=== PATIENT | female | born 1955 ===

== ENCOUNTER 2019-03-25 10:01 | Emergency (ER) | payer MEDICARE, OTHER ==
[~2019-03-25] VITALS: Ht 175.3 cm; Wt 96.6 kg
[2019-03-25] MEDS ORDERED: TRAZ50 PO (10:20)
[2019-03-25] MEDS ORDERED: PANT40 PO (10:20)
[2019-03-25] MEDS ORDERED: CYCL10 PO (10:20)
[2019-03-25] MEDS ORDERED: NORT25 PO (10:20)
[2019-03-25] MEDS ORDERED: METPRE4DP PO (11:33)
== END 2019-03-25 12:14 | disposition home or self-care (01) ==
LOC: ER 10:01
DX: G89.29 Other chronic pain (principal); M54.5 Low back pain; K21.9 Gastro-esophageal reflux disease without esophagitis; Z87.891 Personal history of nicotine dependence; Z88.5 Allergy status to narcotic agent; Z91.040 Latex allergy status; Z79.899 Other long term (current) drug therapy
CPT/HCPCS: 96372; 99283-25; J1100; J1885

== ENCOUNTER 2020-12-07 12:42 | Emergency (ER) | payer OTHER ==
[~2020-12-07] VITALS: Ht 172.7 cm; Wt 98.4 kg
[~2020-12-07 12:42] MED LIST: CYCL10 PO; METPRE4DP PO; NORT25 PO; PANT40 PO; TRAZ50 PO
[2020-12-07] MEDS ORDERED: BP MEDICATION (13:07)
[2020-12-07] MEDS ORDERED: ALBU3IS INH (13:08)
== END 2020-12-07 15:44 | disposition home or self-care (01) ==
LOC: ER 12:42
DX: S63.501A Unspecified sprain of right wrist, initial encounter (principal); S63.502A Unspecified sprain of left wrist, initial encounter; S60.512A Abrasion of left hand, initial encounter; S60.511A Abrasion of right hand, initial encounter; Z91.040 Latex allergy status; Z88.5 Allergy status to narcotic agent; Z87.891 Personal history of nicotine dependence; W18.30XA Fall on same level, unspecified, initial encounter
CPT/HCPCS: 64450; 73090; 73100; 73120; 96372-59; 99283-25; J1885

== ENCOUNTER 2021-08-08 16:13 | Emergency (ER) | payer MEDICARE ==
[~2021-08-08] VITALS: Ht 175.3 cm; Wt 98.9 kg
[~2021-08-08 16:13] MED LIST changes: +ALBU3IS INH; +BP MEDICATION
[2021-08-08 17:17] LABS: BASOPHILS ABSOLUTE AUTO 0.07 K/mm3 (0.00-0.23); BASOPHILS PERCENT AUTO 1 % (0-2); EOSINOPHILS ABSOLUTE AUTO 0.26 K/mm3 (0.00-0.68); EOSINOPHILS PERCENT AUTO 3 % (0-6); Hemoglobin 15.3 g/dL (11.5-16.0); IMMATURE GRAN ABSOLUTE AUTO 0.03 K/mm3 (0.00-0.10); IMMATURE GRAN PERCENT AUTO 0 % (0-1); LYMPHOCYTES ABSOLUTE AUTO 3.69 K/mm3 (0.84-5.20); LYMPHOCYTES PERCENT AUTO 37 % (21-46); MONOCYTES ABSOLUTE AUTO 0.57 K/mm3 (0.16-1.47); MONOCYTES PERCENT AUTO 6 % (4-13); Mean Corpuscular Volume 85 fL (80-100); Mean Platelet Volume 10.5 fL (9.1-12.4); NEUTROPHILS ABSOLUTE AUTO 5.49 K/mm3 (1.96-9.15); NEUTROPHILS PERCENT AUTO 54 % (41-73); Platelet Count 300 K/mm3 (150-400); RDW Coefficient Variation 12.7 % (11.7-14.2); RDW Standard Deviation 39.5 fL (35.1-46.3); Red Blood Cell Count 5.28 M/mm3 (3.80-5.20); White Blood Cell Count 10.11 K/mm3 (4.00-11.30)
[2021-08-08 17:27] LABS: Magnesium, Blood 1.8 mg/dL (1.6-2.4); Troponin I <0.015 ng/mL (0.000-0.040)
[2021-08-08 18:32] LABS: Alanine Aminotransfer (ALT/SGP 43 U/L (12-78); Albumin, Blood 4.2 g/dL (3.4-5.0); Albumin/Globulin Ratio 1.1 (0.8-1.8); Alk Phos 82 U/L (50-136); Anion Gap 12 mmol/L (6-16); Aspartate Aminotrans (AST/SGOT 32 U/L (12-37); Bilirubin, Total 0.7 mg/dL (0.1-1.0); Blood Urea Nitrogen 23 mg/dL (8-24); Bun/Creatinine Ratio 17.3 (12.0-20.0); CO2, Blood 21 mmol/L (21-32); Calcium, Blood 9.7 mg/dL (8.5-10.1); Chloride, Blood 108 mmol/L (98-108); Creatinine, Blood 1.33 mg/dL (0.40-1.00); Globulin, Blood 3.9 g/dL (2.2-4.0); Glomerular Filtration Rate 40 (60-); Glucose, Blood 140 mg/dL (70-99); Potassium, Blood 3.6 mmol/L (3.5-5.5); Sodium, Blood 141 mmol/L (136-145); Total Protein, Blood 8.1 g/dL (6.4-8.2)
== END 2021-08-08 22:18 | disposition home or self-care (01) ==
LOC: ER 16:13
PROVIDERS: Emergency Medicine Emergency Medical Services
DX: R07.89 Other chest pain (principal); R00.2 Palpitations; I10 Essential (primary) hypertension; Z91.040 Latex allergy status; Z88.5 Allergy status to narcotic agent; Z79.899 Other long term (current) drug therapy
CPT/HCPCS: 36415; 70450; 71045; 80053; 83735; 83880; 84484; 85025; 93005; 93010; 96374; 96375; 99285-25; J2060; J2550

== ENCOUNTER → 2021-10-04 | Outpatient (CLI) | payer MEDICARE ==
[2021-10-05 10:42] LABS: Candida species (DNA Probe) Negative (NEGATIVE); G. vaginalis (DNA Probe) Positive (NEGATIVE); T. vaginalis (DNA Probe) Negative (NEGATIVE)
[2021-10-07 02:10] LABS: CHLAMYDIA TRACHOMATIS, NAA Negative (Negative)
== END | disposition home or self-care (01) ==
LOC: LAB 16:15 → LAB SHORT 16:15
PROVIDERS: Family Medicine
DX: N95.0 Postmenopausal bleeding (principal)
CPT/HCPCS: 87480; 87491; 87510; 87591; 87660

== ENCOUNTER → 2023-09-12 | Outpatient (CLI) | payer OTHER ==
[~2023-09-12] MED LIST changes: +Acetaminophen650 M1 PO; +LOSA50 PO; +ONDA4ODT MM; +OXYC5 PO
== END ==
LOC: LAB SHORT 18:54 → LAB 18:54
DX: K21.9 Gastro-esophageal reflux disease without esophagitis (principal)
CPT/HCPCS: 87338

== ENCOUNTER 2024-12-02 05:17 | Inpatient (IN) | payer OTHER ==
[~2024-12-02] VITALS: Ht 175.3 cm; Wt 101.6 kg
[2024-12-02] MEDS ORDERED: Promethazine HCl 25 MG Tab PO ONE (06:10)
[2024-12-02] MEDS ORDERED: Gabapentin 300 MG Cap PO ONE (08:00)
[2024-12-02] MEDS ORDERED: Acetaminophen 500 MG Tab PO ONE (08:00)
[2024-12-02] MEDS ORDERED: Dexamethasone Sod Phos 10 MG/ML 1ML VIAL IV ONE (08:00)
[2024-12-02] MEDS ORDERED: Ketorolac Tromethamine 15mg Vial IV ONE (08:00)
[2024-12-02 13:44] LABS: Body Fluid Crystals NEG (NEGATIVE)
[2024-12-02 14:13] LABS: BODY FLUID RBC 0.002 M/mm3 (0-0)
[2024-12-02 14:23] LABS: RBC Count, Synovial Fluid 2000 /mm3 (0-0); WBC Count, Synovial Fluid 60870 /mm3 (0-180)
[2024-12-02 15:04] LABS: Lymphs, Synovial Fluid 6 % (0-15); Monocytes/Macrophages, Synovia 10 % (0-65); Neutrophils, Synovial Fluid 84 % (0-24)
[2024-12-02 15:05] LABS: Appearance, Synovial Fluid Cloudy (Clear); Color, Synovial Fluid Yellow (None-P Yel)
[2024-12-02] MEDS ORDERED: CefTRIAXone Sodium 2,000 MG in NS 100 ML IV ONE (15:50)
[2024-12-02] MEDS ORDERED: Vancomycin HCL 2,000 MG in NS 500 ML IV ONE (16:00)
[2024-12-02] MEDS ORDERED: FLU VACC TS2024-25(6MOS UP)/PF 45 MCG/0.5 ML SYRINGE IM SCH (16:10)
[2024-12-02 17:19] LABS: BASOPHILS ABSOLUTE AUTO 0.02 K/mm3 (0.00-0.23); BASOPHILS PERCENT AUTO 0 % (0-2); EOSINOPHILS PERCENT AUTO 0 % (0-6); Hematocrit 44.9 % (33.0-51.0); Hemoglobin 14.4 g/dL (11.5-16.0); IMMATURE GRAN ABSOLUTE AUTO 0.07 K/mm3 (0.00-0.10); IMMATURE GRAN PERCENT AUTO 1 % (0-1); LYMPHOCYTES ABSOLUTE AUTO 1.17 K/mm3 (0.84-5.20); LYMPHOCYTES PERCENT AUTO 11 % (21-46); MONOCYTES ABSOLUTE AUTO 0.25 K/mm3 (0.16-1.47); MONOCYTES PERCENT AUTO 2 % (4-13); Mean Corpuscular HGB 28.5 pg (26.0-34.0); Mean Corpuscular HGB Conc 32.1 g/dL (31.5-36.5); Mean Corpuscular Volume 89 fL (80-100); Mean Platelet Volume 9.6 fL (9.1-12.4); NEUTROPHILS ABSOLUTE AUTO 8.86 K/mm3 (1.96-9.15); NEUTROPHILS PERCENT AUTO 85 % (41-73); Platelet Count 259 K/mm3 (150-400); RDW Coefficient Variation 13.6 % (11.7-14.2); RDW Standard Deviation 44.4 fL (35.1-46.3); Red Blood Cell Count 5.06 M/mm3 (3.80-5.20); White Blood Cell Count 10.37 K/mm3 (4.00-11.30)
[2024-12-02] MEDS ORDERED: ATOR40TA PO (17:27)
[2024-12-02 17:45] LABS: C-REACTIVE PROTEIN, EXT RANGE 5.01 mg/dL (0.000-0.300)
[2024-12-02 17:48] LABS: Albumin, Blood 3.2 g/dL (3.4-5.0); Albumin/Globulin Ratio 0.9 (0.8-1.8); Bilirubin, Total 0.6 mg/dL (0.1-1.0); Creatinine, Blood 0.9 mg/dL (0.40-1.00); Globulin, Blood 3.6 g/dL (2.2-4.0); Potassium, Blood 4.2 mmol/L (3.5-5.5); Total Protein, Blood 6.8 g/dL (6.4-8.2)
[2024-12-02] MEDS ORDERED: Ketorolac Tromethamine 15mg Vial IV PRN (18:00)
[2024-12-02] MEDS ORDERED: Promethazine HCl 25 MG Tab PO PRN (18:00)
--- NOTE | 2024-12-02 18:17 | NUR ---
PT ADMITTED THIS EVENING FROM ED FOR INFECTED ARTHRITIS OF RT KNEE, I&D PLANNED FOR TOMORROW, PT TO BE NPO AT MIDNIGHT. PT REPORTS PAIN IN RT KNEE FOR THE LAST MONTH, UNABLE TO BEAR WT D/T PAIN. PT ALERT AND ORIENTED X4, VSS, RA, SKIN IN TACT OTHER THAN SMALL PUNCTURE SITE IN RT KNEE R/T ARTHROCENTESIS DONE IN THE ED. PT STATES NORMALLY CONT OF BOWEL AND BLADDER, BUT TODAY HAS URGENCY INCONTINENCE, PUREWIK IN PLACE. PT ORIENTED TO ROOM AND CALL LIGHT, BED IN LOWEST POSITION AND CALL LIGHT IN REACH.
[2024-12-02 19:23] VITALS: BP 169/73
[2024-12-02] MEDS ORDERED: Acetaminophen 325 MG TABLET PO PRN (19:55)
[2024-12-02] MEDS ORDERED: Albuterol 2.5 MG/3 ML VIAL INH SCH (20:00)
[2024-12-02 20:02] VITALS: BP 157/65
[2024-12-02] MEDS ORDERED: Atorvastatin 40 MG Tab PO SCH (21:00)
[2024-12-02] MEDS ORDERED: Losartan Potassium 50 MG Tab PO SCH (21:25)
[2024-12-03] VITALS (18 sets, daily range): BP systolic 120–162; BP diastolic 56–76
[2024-12-03] MEDS ORDERED: OMEP20ER PO (03:25)
[2024-12-03 04:59] LABS: BASOPHILS ABSOLUTE AUTO 0.01 K/mm3 (0.00-0.23); BASOPHILS PERCENT AUTO 0 % (0-2); EOSINOPHILS ABSOLUTE AUTO 0.01 K/mm3 (0.00-0.68); EOSINOPHILS PERCENT AUTO 0 % (0-6); Hematocrit 40.3 % (33.0-51.0); Hemoglobin 13.2 g/dL (11.5-16.0); IMMATURE GRAN ABSOLUTE AUTO 0.11 K/mm3 (0.00-0.10); IMMATURE GRAN PERCENT AUTO 1 % (0-1); LYMPHOCYTES ABSOLUTE AUTO 2.67 K/mm3 (0.84-5.20); LYMPHOCYTES PERCENT AUTO 18 % (21-46); MONOCYTES ABSOLUTE AUTO 1.11 K/mm3 (0.16-1.47); MONOCYTES PERCENT AUTO 7 % (4-13); Mean Corpuscular HGB 28.5 pg (26.0-34.0); Mean Corpuscular HGB Conc 32.8 g/dL (31.5-36.5); Mean Corpuscular Volume 87 fL (80-100); Mean Platelet Volume 9.6 fL (9.1-12.4); NEUTROPHILS PERCENT AUTO 74 % (41-73); Platelet Count 245 K/mm3 (150-400); RDW Coefficient Variation 13.6 % (11.7-14.2); RDW Standard Deviation 43.1 fL (35.1-46.3); Red Blood Cell Count 4.63 M/mm3 (3.80-5.20); White Blood Cell Count 15.11 K/mm3 (4.00-11.30)
[2024-12-03 05:28] LABS: Albumin, Blood 2.8 g/dL (3.4-5.0); Albumin/Globulin Ratio 0.8 (0.8-1.8); Bilirubin, Total 0.4 mg/dL (0.1-1.0); Bun/Creatinine Ratio 29.3 (12.0-20.0); Calcium, Blood 8.9 mg/dL (8.5-10.1); Creatinine, Blood 0.92 mg/dL (0.40-1.00); Globulin, Blood 3.4 g/dL (2.2-4.0); Magnesium, Blood 2.4 mg/dL (1.6-2.4); Potassium, Blood 4.5 mmol/L (3.5-5.5); Total Protein, Blood 6.2 g/dL (6.4-8.2)
[2024-12-03] MEDS ORDERED: Albuterol 2.5 MG/3 ML VIAL INH PRN (07:55)
--- NOTE | 2024-12-03 08:11 | NUR ---
SHIFT SUMMARY NOC. PT A/O X4, PT PLAN TO HAVE I&D TODAY FOR SEPTIC ARTHRITIS OF R KNEE. PT NPO SINCE 0000 ASIDE FROM SIP OF WATER FOR NAUSEA AND PAIN MEDS. PT VOIDING URINE AND REPORTS INTERMITTENT NAUSEA, NO VOMIT EPISODES. PT MEDICATED FOR PAIN WITH ORAL TYLENOL AND TORADOL. PT REPORTED SOME RELIEF. MAKES NEEDS KNOWN, CALL LIGHT IN REACH.
[2024-12-03] MEDS ORDERED: Enoxaparin 40 MG/0.4 ML SYR SC SCH (09:00)
[2024-12-03] MEDS ORDERED: Losartan Potassium 50 MG Tab PO SCH (09:00)
[2024-12-03] MEDS ORDERED: propofoL 20 ML IV ONE (09:32)
[2024-12-03] MEDS ORDERED: Ondansetron HCl 2 MG / ML 2ML Vial ONE (09:32)
[2024-12-03] MEDS ORDERED: FentaNYL Citrate 50 MCG/ML 2 ML Injection ONE ×2 (09:32→13:42)
[2024-12-03] MEDS ORDERED: Ketorolac Tromethamine 30mg Vial ONE (09:32)
[2024-12-03] MEDS ORDERED: Dexamethasone Sod Phos 10 MG/ML 1ML VIAL ONE (09:32)
--- NOTE | 2024-12-03 11:33 | NUR ---
PT TO PROCEDURE AT THIS TIME
[2024-12-03] MEDS ORDERED: Lactated Ringer's 1,000 ML IV SCH (11:55)
[2024-12-03] MEDS ORDERED: Midazolam HCl 1MG / ML 2ML Vial IV SCH (11:55)
[2024-12-03] MEDS ORDERED: EpiNEPhrine 1 MG/1 ML 1ML Vial ONE (12:42)
[2024-12-03] MEDS ORDERED: Rocuronium Bromide 10 MG/ML 5ML Injection IV ONE (13:34)
[2024-12-03] MEDS ORDERED: CeFAZolin Sodium 1000 mg Vial ONE ×2 (13:36)
[2024-12-03] MEDS ORDERED: Sugammadex Sodium 200 MG/2ML SDV (100 MG/ML) ONE (13:40)
[2024-12-03] MEDS ORDERED: Lidocaine 1%-Epineph 1:100000 20 ML MDV INJ ONE (13:45)
[2024-12-03] MEDS ORDERED: HYDROmorphone HCl/Pf 1MG SYR ONE ×2 (14:21→14:34)
[2024-12-03] MEDS ORDERED: Droperidol 5 mg/2 ml Vial ONE (14:40)
--- NOTE | 2024-12-03 15:19 | NUR ---
ARRIVAL TO UNIT PT ARRIVED VIA GURNEY. SLID WITH SLIDE SHEET TO BED. TOLERATED WELL. PT REPORTS SIGNIFICANT PAIN IN UPPER THIGH/GROIN BUT NOT IN HER KNEE AT THIS TIME. BRENDAN WRAP TO R KNEE CDI. DENIES DISCOMFORT OTHERWISE. TOLERATING WATER AND CRACKERS AT THIS TIME. SPOUSE AT BEDSIDE.
[2024-12-03] MEDS ORDERED: HYDROcodone 5-APAP 325 TAB PO PRN (15:30)
--- NOTE | 2024-12-03 17:37 | NUR ---
NO ACUTE CHANGES SINCE ARRIVAL TO UNIT. PO MEDICATION GIVEN. PT ABLE TO FALL ASLEEP. DRESSING CDI. TOLERATING DIET.
--- NOTE | 2024-12-03 18:49 | NUR ---
pt transfered to room 355. all belongings with patient. patient states she will notify her . she reports pain significantly improved with oral medications.
--- NOTE | 2024-12-03 18:51 | NUR ---
PT TRANSFERED FROM 229.
[2024-12-03] MEDS ORDERED: Omeprazole 20 MG CapCR PO SCH (22:15)
[2024-12-03] MEDS ORDERED: Bisacodyl 5 MG TabEC PO PRN (22:20)
[2024-12-04 03:50] VITALS: BP 134/71
--- NOTE | 2024-12-04 06:03 | NUR ---
SHIFT SUMMARY PT SLEPT SHORT PERIODS DURING THE NIGHT. DRESSING TO RIGHT KNEE C/D/I. MEDICATED FOR PAIN PER EMAR. PT STATED HER PAIN IS TO HER INNER THIGH AND THIGH MUSCLE MORE THAN TO HER KNEE. UP WITH WALKER AND SBA TO BSC, THEN BATHROOM. ORDER RECEIVED FOR REQUESTED PRILOSEC AND DUCOLAX TABLETS. BED IN LOWEST POSITION, SIDE RAILS UP X2, CALL LIGHT WITHIN REACH.
[2024-12-04 07:29] VITALS: BP 126/64
[2024-12-04] MEDS ORDERED: Polyethylene Glycol 3350 17 gm PO SCH (10:35)
[2024-12-04 11:03] LABS: BASOPHILS ABSOLUTE AUTO 0.04 K/mm3 (0.00-0.23); BASOPHILS PERCENT AUTO 0 % (0-2); EOSINOPHILS ABSOLUTE AUTO 0.07 K/mm3 (0.00-0.68); EOSINOPHILS PERCENT AUTO 1 % (0-6); Hemoglobin 13.8 g/dL (11.5-16.0); IMMATURE GRAN ABSOLUTE AUTO 0.07 K/mm3 (0.00-0.10); IMMATURE GRAN PERCENT AUTO 1 % (0-1); LYMPHOCYTES ABSOLUTE AUTO 4.86 K/mm3 (0.84-5.20); LYMPHOCYTES PERCENT AUTO 35 % (21-46); MONOCYTES ABSOLUTE AUTO 0.91 K/mm3 (0.16-1.47); MONOCYTES PERCENT AUTO 7 % (4-13); Mean Corpuscular HGB 28.4 pg (26.0-34.0); Mean Corpuscular HGB Conc 31.4 g/dL (31.5-36.5); Mean Corpuscular Volume 91 fL (80-100); Mean Platelet Volume 9.8 fL (9.1-12.4); NEUTROPHILS ABSOLUTE AUTO 7.82 K/mm3 (1.96-9.15); NEUTROPHILS PERCENT AUTO 57 % (41-73); Platelet Count 227 K/mm3 (150-400); RDW Coefficient Variation 14.1 % (11.7-14.2); RDW Standard Deviation 47.4 fL (35.1-46.3); Red Blood Cell Count 4.86 M/mm3 (3.80-5.20); White Blood Cell Count 13.77 K/mm3 (4.00-11.30)
[2024-12-04 15:40] VITALS: BP 148/64
--- NOTE | 2024-12-04 16:24 | NUR ---
SHIFT SUMMARY PT IS A/OX4, SBA WITH FWW TO BATHROOM. DAY 1 POST-OP FROM ARTHROSCOPY AND IND OF THE RIGHT KNEE. VSS. PT REPORTS PAIN TO THE RIGHT THIGH AND PRESSURE TO THE RIGHT KNEE, MEDICATED WITH NORCO AND TORADOL PER JAN. WBC TRENDING DOWN. PT IS ON RA, NO TELE. PT REPORTED NAUSEA THIS AFTERNOON, MEDICATED WITH PHENERGAN PER JAN. PT ABLE TO SLEEP INTERMITTENTLY THIS SHIFT.
[2024-12-04 21:02] VITALS: BP 133/67
[2024-12-05 01:30] VITALS: BP 141/64
--- NOTE | 2024-12-05 03:45 | NUR ---
SHIFT SUMM: PT IS A 69 YO FULL CODE ADMITTED FOR SEPTIC ARTHRITIS OF R KNEE. Q4 ORTHO CHECKS HAVE BEEN COMPLETED AND WNL.DRESSING CHANGED FOR SOME OLD DRIED BLOOD AND LOOKS GOOD WITH NO DISCOLORATION OF LEG AND GOOD CAP REFILL ON TOES. PT IS ON RA AND IS A SBA W/FWW TO THE BATHROOM. PT HAS ORDERS FOR PT/OT EVAL AND POSSIBLE SNF TRANSFER AT SOME POINT. PT HAD AT BEDSIDE AT BEG OF SHIFT AND PAIN HAS BEEN WELL MANAGED (SEE EMAR). PT REPORTS FEELING GOOD FOR THE MOST PART AND HAS BEEN RESTING AND SLEEPING ON AND OFF. PT HAS CALL LIGHT IN REACH.
[2024-12-05 07:32] VITALS: BP 110/54
--- NOTE | 2024-12-05 07:33 | NUR ---
ASSUMED CARE OF PATIENT. SLEEPING ON RIGHT SIDE DURING SHIFT CHANGE REPORT. NO ACUTE NEEDS.
--- NOTE | 2024-12-05 11:37 | NUR ---
PT C/O HEADACHE AND NAUSEA. RIGHT KNEE WITH SEVERE PAIN AND STARTING TO HAVE PAIN IN LEFT KNEE, NOW, SIMILAR TO HOW RIGHT KNEE PAIN STARTED. DR MEADE TO BEDSIDE.
[2024-12-05 15:40] VITALS: BP 122/55
--- NOTE | 2024-12-05 17:51 | NUR ---
END OF SHIFT SUMMARY: A&Ox4. PLEASANT AND COOPERATIVE WITH CARE. CALLS APPROPRIATELY AND IS ABLE TO ADVOCATE NEEDS EFFECTIVELY. CONTINENT OF BOWEL AND BLADDER. INDEPENDENT WITH AMBULATION WITHIN ROOM. MEDS WHOLE WITH FLUIDS. COMPLAINED OF PAIN AND DISCOMFORT IN RIGHT KNEE EARLY IN SHIFT SHE ATTRIBUTES TO ANESTHETIC WEARING OFF. PROVIDED WITH ICE PACK AND DRESSING CHANGE. WORKED WITH PHYSICAL THERAPY TODAY; RECOMMENDING HOME c HOME HEALTH EARLY TOMORROW. PT DID REPORT TO DR. MEADE THAT SHE WAS EXPERIENCING SIMILAR PAIN IN HER RIGHT KNEE AND IS CONCERNED THE SAME TYPE OF INFx IS STARTING IN LEFT KNEE. BED IN LOWEST POSITION, CALL LIGHT WITHIN REACH, ALL NEEDS MET. REPORT TO ONCOMING NURSE.
[2024-12-05 19:47] VITALS: BP 141/74
[2024-12-06 02:03] VITALS: BP 136/55
--- NOTE | 2024-12-06 04:30 | NUR ---
SHIFT SUMM: PT HAS BEEN DOING VERY WELL AND IN GOOD SPIRITS THIS SHIFT /FWW TO BATHROOM AND AMBULATES IN THE HALLWAY. PT WAS MEDICATED FOR PAIN AND HAS BEEN RESTING IN BED WATCHING TV MOST OF THE SHIFT AND AMBULATING IN HALLWAY WITH WALKER AT TIMES. I CHANGED THE BANDAGE ON THE R KNEE BECAUSE IT FELL OFF. PT IS EXPECTED TO D/C TODAY AND IS LOOKING FORWARD TO GETTING BACK HOME. PT CALLS NEEDED AND HAS CALL LIGHT CLOSE. PT NOW ASLEEP AND IND IN ROOM.
[2024-12-06 05:36] LABS: BASOPHILS ABSOLUTE AUTO 0.04 K/mm3 (0.00-0.23); BASOPHILS PERCENT AUTO 0 % (0-2); EOSINOPHILS ABSOLUTE AUTO 0.29 K/mm3 (0.00-0.68); EOSINOPHILS PERCENT AUTO 3 % (0-6); Hematocrit 42.8 % (33.0-51.0); Hemoglobin 14.1 g/dL (11.5-16.0); Mean Corpuscular HGB 28.4 pg (26.0-34.0); Mean Corpuscular HGB Conc 32.9 g/dL (31.5-36.5); Mean Platelet Volume 9.2 fL (9.1-12.4); Platelet Count 231 K/mm3 (150-400); RDW Coefficient Variation 13.5 % (11.7-14.2); RDW Standard Deviation 42.5 fL (35.1-46.3); Red Blood Cell Count 4.97 M/mm3 (3.80-5.20); White Blood Cell Count 10.94 K/mm3 (4.00-11.30)
[2024-12-06 05:38] VITALS: BP 153/73
[2024-12-06 05:44] LABS: IMMATURE GRAN ABSOLUTE AUTO 0.07 K/mm3 (0.00-0.10); IMMATURE GRAN PERCENT AUTO 1 % (0-1); LYMPHOCYTES ABSOLUTE AUTO 4.32 K/mm3 (0.84-5.20); LYMPHOCYTES PERCENT AUTO 40 % (21-46); MONOCYTES ABSOLUTE AUTO 0.61 K/mm3 (0.16-1.47); MONOCYTES PERCENT AUTO 6 % (4-13); Mean Corpuscular Volume 86 fL (80-100); NEUTROPHILS ABSOLUTE AUTO 5.61 K/mm3 (1.96-9.15); NEUTROPHILS PERCENT AUTO 51 % (41-73)
[2024-12-06 06:21] LABS: Albumin, Blood 2.9 g/dL (3.4-5.0); Albumin/Globulin Ratio 0.8 (0.8-1.8); Bilirubin, Total 0.5 mg/dL (0.1-1.0); Bun/Creatinine Ratio 22.7 (12.0-20.0); Calcium, Blood 9.1 mg/dL (8.5-10.1); Creatinine, Blood 0.88 mg/dL (0.40-1.00); Globulin, Blood 3.5 g/dL (2.2-4.0); Potassium, Blood 4.7 mmol/L (3.5-5.5); Total Protein, Blood 6.4 g/dL (6.4-8.2)
[2024-12-06 07:32] VITALS: BP 118/56
[2024-12-06] MEDS ORDERED: MIRALAX17 GM PO (11:14)
[2024-12-06] MEDS ORDERED: PROM25 PO (11:15)
--- NOTE | 2024-12-06 14:52 | NUR ---
DISCHARGE SUMMARY PATIENT DISCHARGED HOME THIS SHIFT WITH GRANDSON TO DRIVE. NO IV ACCESS THIS SHIFT. DISCHARGE PACKET GIVEN AND REVIEWED, QUESTIONS ANSWERED, VERBALIZED UNDERSTANDING. BANDAIDS IN PLACE TO RIGHT KNEE. HARD SCRIPTS SENT WITH PT. A/O X4.
== END 2024-12-06 13:36 | disposition home or self-care (01) | DRG 487 ==
LOC: ER 05:17 → SURS 17:16 → MEDS 12-03 18:53 → ENPENDDIS 12-06 12:48 → MEDS 12-06 13:36
PROVIDERS: Orthopaedic Surgery Sports Medicine; Student in an Organized Health Care Education/Training Program; ADMIT Internal Medicine
PROC: 0SBC4ZZ Excision of Right Knee Joint, Percutaneous Endoscopic Approach (ICD-10-PCS; principal; 2024-12-03 12:30)
DX: M00.9 Pyogenic arthritis, unspecified (principal); E78.00 Pure hypercholesterolemia, unspecified; I10 Essential (primary) hypertension; M81.0 Age-related osteoporosis without current pathological fracture; G89.29 Other chronic pain; M54.50 Low back pain, unspecified; M17.0 Bilateral primary osteoarthritis of knee; R73.03 Prediabetes; J44.9 Chronic obstructive pulmonary disease, unspecified; I25.2 Old myocardial infarction; Z88.5 Allergy status to narcotic agent; Z88.8 Allergy status to other drugs, medicaments and biological substances; Z79.899 Other long term (current) drug therapy; Z91.040 Latex allergy status
CPT/HCPCS: 20610; 36415; 80053; 83735; 85025; 85651; 86140; 87070; 87075; 87205; 89051; 89060; 93005; 93010; 93971; 94640; 94664; 94760; 96374-59; 96375-59; 97110; 97116; 97161; 99285-25; A9270; J0171; J0690; J0696; J1100; J1171; J1790; J1885; J2250; J2405; J2704; J3010; J3370; J7040; J7120

== ENCOUNTER → 2025-02-11 | Outpatient (CLI) | payer OTHER ==
[~2025-02-11] MED LIST changes: +ATOR40TA PO; +MIRALAX17 GM PO; +OMEP20ER PO; +PROM25 PO
[2025-02-11 12:13] LABS: BASOPHILS ABSOLUTE AUTO 0.05 K/mm3 (0.00-0.23); BASOPHILS PERCENT AUTO 1 % (0-2); EOSINOPHILS ABSOLUTE AUTO 0.36 K/mm3 (0.00-0.68); EOSINOPHILS PERCENT AUTO 3 % (0-6); Hematocrit 44.4 % (33.0-51.0); Hemoglobin 14.8 g/dL (11.5-16.0); IMMATURE GRAN ABSOLUTE AUTO 0.03 K/mm3 (0.00-0.10); IMMATURE GRAN PERCENT AUTO 0 % (0-1); LYMPHOCYTES ABSOLUTE AUTO 2.22 K/mm3 (0.84-5.20); LYMPHOCYTES PERCENT AUTO 21 % (21-46); MONOCYTES ABSOLUTE AUTO 0.59 K/mm3 (0.16-1.47); MONOCYTES PERCENT AUTO 6 % (4-13); Mean Corpuscular HGB 28.4 pg (26.0-34.0); Mean Corpuscular HGB Conc 33.3 g/dL (31.5-36.5); Mean Corpuscular Volume 85 fL (80-100); Mean Platelet Volume 9.8 fL (9.1-12.4); NEUTROPHILS ABSOLUTE AUTO 7.54 K/mm3 (1.96-9.15); NEUTROPHILS PERCENT AUTO 70 % (41-73); Platelet Count 275 K/mm3 (150-400); RDW Coefficient Variation 12.8 % (11.7-14.2); RDW Standard Deviation 39.9 fL (35.1-46.3); Red Blood Cell Count 5.21 M/mm3 (3.80-5.20); White Blood Cell Count 10.79 K/mm3 (4.00-11.30)
[2025-02-11 12:34] LABS: Albumin, Blood 3.8 g/dL (3.4-5.0); Albumin/Globulin Ratio 0.9 (0.8-1.8); Bilirubin, Total 0.7 mg/dL (0.1-1.0); Bun/Creatinine Ratio 7.7 (12.0-20.0); Calcium, Blood 9.4 mg/dL (8.5-10.1); Creatinine, Blood 1.04 mg/dL (0.40-1.00); Globulin, Blood 4.1 g/dL (2.2-4.0); Potassium, Blood 3.6 mmol/L (3.5-5.5); Thyroid Stimulating Hormone 4.057 uIU/mL (0.360-4.800); Total Protein, Blood 7.9 g/dL (6.4-8.2)
== END ==
LOC: LAB SHORT 12:07 → LAB 12:07
PROVIDERS: Chiropractor
DX: R06.00 Dyspnea, unspecified (principal); R53.83 Other fatigue
CPT/HCPCS: 80053; 83880; 84443; 84484; 85025; 85379

== ENCOUNTER → 2025-06-18 | Outpatient (CLI) | payer OTHER ==
[2025-06-18 08:35] LABS: BASOPHILS ABSOLUTE AUTO 0.04 K/mm3 (0.00-0.23); BASOPHILS PERCENT AUTO 0 % (0-2); EOSINOPHILS ABSOLUTE AUTO 0.09 K/mm3 (0.00-0.68); EOSINOPHILS PERCENT AUTO 1 % (0-6); Hematocrit 42.6 % (33.0-51.0); Hemoglobin 14.0 g/dL (11.5-16.0); IMMATURE GRAN ABSOLUTE AUTO 0.03 K/mm3 (0.00-0.10); IMMATURE GRAN PERCENT AUTO 0 % (0-1); LYMPHOCYTES ABSOLUTE AUTO 2.39 K/mm3 (0.84-5.20); LYMPHOCYTES PERCENT AUTO 23 % (21-46); MONOCYTES ABSOLUTE AUTO 0.60 K/mm3 (0.16-1.47); MONOCYTES PERCENT AUTO 6 % (4-13); Mean Corpuscular HGB Conc 32.9 g/dL (31.5-36.5); Mean Corpuscular Volume 87 fL (80-100); NEUTROPHILS ABSOLUTE AUTO 7.29 K/mm3 (1.96-9.15); NEUTROPHILS PERCENT AUTO 70 % (41-73); NRBC ABSOLUTE 0.00 K/mm3 (0.00-0.02); NRBC Auto 0.0 /100 WBC (0.0-0.2); Platelet Count 249 K/mm3 (150-400); RDW Coefficient Variation 14.1 % (11.7-14.2); RDW Standard Deviation 45.0 fL (35.1-46.3)
[2025-06-18 09:48] LABS: Alanine Aminotransfer (ALT/SGP 25.0 U/L (12-78); Albumin, Blood 3.6 g/dL (3.4-5.0); Albumin/Globulin Ratio 1.0 (0.8-1.8); Anion Gap 9.0 mmol/L (3-11); Aspartate Aminotrans (AST/SGOT 14.0 U/L (12-37); Bilirubin, Total 0.4 mg/dL (0.1-1.0); Blood Urea Nitrogen 20.0 mg/dL (8-24); CO2, Blood 23.0 mmol/L (21-32); Calcium, Blood 8.7 mg/dL (8.5-10.1); Chloride, Blood 107.0 mmol/L (98-108); Creatinine, Blood 1.05 mg/dL (0.40-1.00); Globulin, Blood 3.6 g/dL (2.2-4.0); Glucose, Blood 124.0 mg/dL (70-99); Magnesium, Blood 1.9 mg/dL (1.6-2.4); Potassium, Blood 4.2 mmol/L (3.5-5.5); Sodium, Blood 135.0 mmol/L (136-145); Total Protein, Blood 7.2 g/dL (6.4-8.2)
== END ==
LOC: LAB 08:23 → LAB SHORT 08:23
PROVIDERS: Emergency Medicine
DX: M62.838 Other muscle spasm (principal); I51.5 Myocardial degeneration
CPT/HCPCS: 80053; 83735; 85025